=== PATIENT | male | born 1970 | race Caucasian/White ===

== ENCOUNTER 2018-08-31 10:42 | Inpatient (IN) ==
[2018-08-31] MEDS ORDERED: DESYREL PO PRN (12:12)
[2018-08-31] MEDS ORDERED: D5W 1,000 ML IV PRN (12:12)
[2018-08-31] MEDS ORDERED: ROBAXIN PO PRN (12:12)
[2018-08-31] MEDS ORDERED: MAALOX PLUS LIQUID PO PRN (12:12)
[2018-08-31] MEDS ORDERED: PHENOBARBITAL IV PRN (12:12)
[2018-08-31] MEDS ORDERED: MOTRIN PO PRN (12:12)
[2018-08-31] MEDS ORDERED: IMODIUM PO PRN (12:12)
[2018-08-31] MEDS ORDERED: SEROQUEL PO PRN (12:12)
[2018-08-31] MEDS ORDERED: SALINE LOCK IV FLUID XX ONE (12:12)
[2018-08-31] MEDS ORDERED: SENOKOT PO PRN (12:12)
[2018-08-31] MEDS ORDERED: ZOFRAN ODT PO PRN (12:12)
[2018-08-31] MEDS ORDERED: TYLENOL PO PRN (12:12)
[2018-08-31] MEDS ORDERED: BENTYL PO PRN (12:12)
[2018-08-31] MEDS ORDERED: ZOFRAN IM PRN (12:12)
[2018-08-31] MEDS ORDERED: ATARAX PO PRN (12:12)
[2018-08-31] MEDS ORDERED: DULCOLAX PR PRN (12:12)
[2018-08-31] MEDS ORDERED: NICODERM PATCH TD PRN (12:12)
[2018-08-31 13:16] LABS: UR AMPHETAMINES QUAL NONE DETECTED (NONE DETECT); UR BARBITUATES QUAL NONE DETECTED (NONE DETECT); UR BENZODIAZEPIN QUAL NONE DETECTED (NONE DETECT); UR CANNABINOIDS QUAL NONE DETECTED (NONE DETECT); UR COCAINE QUAL NONE DETECTED (NONE DETECT); UR METHADONE QUAL NONE DETECTED (NONE DETECT); UR METHAMPHETAMINE QUAL NONE DETECTED (NONE DETECT); UR OPIATES QUAL NONE DETECTED (NONE DETECT); UR OXYCODONE QUAL NONE DETECTED (NONE DETECT); UR PCP QUAL NONE DETECTED (NONE DETECT); UR PROPOXYPHENE QUAL NONE DETECTED (NONE DETECT); UR TCA QUAL NONE DETECTED (NONE DETECT)
[2018-08-31] MEDS ORDERED: M.V.I.-12 10 ML, FOLIC ACID 1 MG, MAGNESIUM SULFATE 1 GM, THIAMINE 100 MG in NS 1,000 ML IV ONE (14:00)
[2018-08-31] MEDS ORDERED: LIBRIUM PO SCH (14:00)
[2018-08-31] MEDS ORDERED: TUBERSOL ID ONE (14:00)
[2018-08-31 14:12] LABS: URINE SOURCE VOIDED
[2018-08-31 14:12] LABS: HEMATOCRIT 40.2 % (42.0-52.0); HEMOGLOBIN 14.1 g/dL (14.0-18.0); MCH 33.8 PG (27-31); MCHC 35.1 g/dL (33-37); MCV 96.4 FL (81-99); RBC 4.17 XMIL (4.7-6.1); WBC 8.16 X1000 (4.8-10.8)
[2018-08-31 14:16] LABS: BILIRUBIN URINE NEGATIVE (NEGATIVE); BLOOD URINE NEGATIVE (NEGATIVE); CLARITY CLEAR (CLEAR); COLOR YELLOW; GLUCOSE URINE NEGATIVE (NEGATIVE); KETONE URINE NEGATIVE (NEGATIVE); LEUKOCYTES URINE NEGATIVE (NEGATIVE); NITRITE URINE NEGATIVE (NEGATIVE); PH URINE 6.5; PROTEIN URINE NEGATIVE (NEGATIVE); UROBILINOGEN URINE NORMAL
[2018-08-31 14:28] LABS: AMYLASE 38 U/L (20-200); LIPASE 32 U/L (13-60)
[2018-08-31 14:30] LABS: AGAP 15; ALBUMIN 4.4 g/dL (3.5-5.0); ALKALINE PHOSPHATASE 58 U/L (32-122); BUN 4 mg/dL (8-22); CHLORIDE 98 mmol/L (98-107); COSMO 272; CREATININE 0.6 mg/dL (0.7-1.2); ESTIMATED GFR > 60; GLUCOSE 87 mg/dL (70-104); GOT 73 U/L (10-34); GPT 49 U/L (10-44); POTASSIUM 4.5 mmol/L (3.5-5.1); SODIUM 138 mmol/L (136-145); TCO2 25 mmol/L (25-35); TOTAL PROTEIN 7.4 g/dL (6.3-8.3)
[2018-08-31 14:31] LABS: INR 0.88; PROTIME 12.4 Seconds (11.0-16.0)
[2018-08-31] MEDS: LIBRIUM PO SCH (20:07)
[2018-09-01] MEDS: LIBRIUM PO SCH ×4 (03:05→20:34)
[2018-09-01] MEDS: PROTONIX PO SCH (06:03)
[2018-09-01] MEDS: THERA M PLUS PO SCH (10:00)
[2018-09-01] MEDS: FOLIC ACID PO SCH (10:00)
[2018-09-01] MEDS: VITAMIN B-1 PO SCH (10:00)
--- NOTE | 2018-09-01 18:32 | PROGRESS NOTE ---
DATE: 09/01/2018 SUBJECTIVE: The patient notes overall he is actually feeling good. He states his withdrawal symptoms have improved. He is having very little tremors. He is having no weakness, which is an improvement. He states that he did not sleep well, but notes that he was able to eat supper and is excited about eating breakfast this morning. OBJECTIVE: Vital signs reviewed and stable. He is awake, alert. He is in no current respiratory distress. HEENT: Normocephalic. Neck supple. CV: Regular rate. No murmurs. Chest clear, nonlabored. Abdomen is soft, nondistended, nontender. Extremities: Moves all extremities. ASSESSMENT: 1. Nausea and vomiting. 2. Abdominal pain. 3. Myalgias. 4. Paresthesias. 5. Paroxysmal sweating. 6. Opiate abuse withdrawal, admitted for stabilization. 7. Tremors. 8. Alcohol abuse withdrawal, and continued stabilization. PLAN: We will continue the patient in the hospital on high-dose Librium. Continue to follow, wean as tolerated. Further orders as needed. cc: Bakari Mccollum MD
[2018-09-02] MEDS: LIBRIUM PO SCH ×3 (01:26→16:11)
[2018-09-02] MEDS: PROTONIX PO SCH (06:34)
[2018-09-02] MEDS: THERA M PLUS PO SCH (08:03)
[2018-09-02] MEDS: FOLIC ACID PO SCH (08:04)
[2018-09-02] MEDS: VITAMIN B-1 PO SCH (08:04)
--- NOTE | 2018-09-02 10:10 | HISTORY AND PHYSICAL ---
CHIEF COMPLAINT: Nausea, vomiting, tremors. HISTORY OF PRESENT ILLNESS: Patient is a 48-year-old male who presented to [email or web address] program secondary to nausea, vomiting and tremors. The patient notes that he has been drinking alcohol heavily again. He had been very successful on Vivitrol until he had missed a shot. At that point, he had unfortunately attempted to take a drink, and from that point on has been drinking heavily up to 24 beers a day. SOCIAL HISTORY: Patient is . He is currently unemployed. Lives at home in [place]. PAST MEDICAL HISTORY: Significant only for prostate problems, chronic tobacco abuse, chronic alcoholism, chronic anxiety. Does have a history of blackouts secondary to drinking. FAMILY HISTORY: Noncontributory, although does have a family history of his grandfather committing suicide which has created stressor in his life. MEDICATIONS: None. ALLERGIES: None. REVIEW OF SYSTEMS: CIWA score is 11 secondary to nausea, vomiting, paroxysmal sweating, agitation, disorientation, headache. He is very fatigued; in fact, has to be helped to stand. Denies any headaches, blurry vision, change in his vision. Denies any focalized weakness, although he is generally weak. Denies any dysuria, frequency, urgency. Denies hesitancy, polyuria. Denies constipation, melena, hematochezia. The patient's acute withdrawal symptoms actually are mild currently, although interestingly he is already having withdrawal symptoms and drank 10 beers earlier this morning prior to leaving [place] to come to the hospital. PHYSICAL EXAMINATION: GENERAL: Vital signs reviewed and stable. Patient is awake, alert. He is in no current respiratory distress, but he is somewhat ill-appearing due to generalized weakness and acute alcohol withdrawal symptoms. HEENT: Normocephalic. NECK: Supple. CV: Regular rate. No murmurs. CHEST: Clear and nonlabored. ABDOMEN: Soft, nondistended. No masses. EXTREMITIES: Moves all extremities, although generalized weakness. He has very mild tremors. NEUROLOGIC: No focal neurological changes. SKIN: Warm, dry, no rashes. ASSESSMENT: 1. Nausea and vomiting. 2. Abdominal pain. 3. Tremors. 4. Generalized weakness. 5. History of blackouts due to alcohol ingestion. 6. Chronic alcoholism. PLAN: We will admit patient to [facility]. Begin counseling. Begin treatment with high-dose Librium and will follow. Discussed with patient the importance of continuing on his Vivitrol injections at home for a minimum of 6 months, preferably close to a year to allow him ample time to continue to wean off the alcohol. cc: Bakari Mccollum MD
--- NOTE | 2018-09-02 10:29 | PROGRESS NOTE ---
DATE: 09/02/2018 SUBJECTIVE: Patient notes overall he is feeling a lot better. His withdrawal symptoms have improved. Denies any chest pain, palpitations. Denies any fevers or chills. States his weakness has improved. States that his confusion has improved. PHYSICAL EXAMINATION: Vital Signs: Reviewed General: Patient is awake, alert. He is in no current respiratory distress. Very pleasant to talk with. HEENT: Normocephalic. Neck: Supple. CARDIOVASCULAR: Regular rate. No murmurs. Chest: Clear. Abdomen: Soft. Extremities: Moves all extremities. Neurologic: No changes. ASSESSMENT: 1. Nausea, vomiting. 2. Myalgias. 3. Paresthesias. 4. Tremors. 5. Alcohol abuse withdrawal and stabilization. 6. Chronic anxiety. PLAN: We will continue patient in the hospital. Continue to wean Librium. We will step down to 3 times a day today. If he tolerates hopefully can discharge home tomorrow. Hopefully, we can start him back on Vivitrol. If not, we will use naltrexone until Vivitrol can be ordered. cc: Bakari Mccollum MD
[2018-09-03] MEDS: LIBRIUM PO SCH ×2 (00:07→08:08)
[2018-09-03] MEDS: PROTONIX PO SCH (06:01)
[2018-09-03] MEDS: VITAMIN B-1 PO SCH (08:08)
[2018-09-03] MEDS: FOLIC ACID PO SCH (08:08)
[2018-09-03] MEDS: THERA M PLUS PO SCH (08:08)
[2018-09-03] MEDS ORDERED: VIVITROL IM ONE (10:45)
[2018-09-03 13:24] VITALS: BP 138/97
--- NOTE | 2018-09-04 16:06 | DISCHARGE SUMMARY ---
ADMISSION DATE: 08/31/2018 DISCHARGE DATE: 09/03/2018 DISCHARGE DIAGNOSES: 1. Nausea, vomiting. 2. Abdominal pain. 3. Myalgias. 4. Paresthesias. 5. Paroxysmal sweating. 6. Tremors. 7. Alcohol abuse withdrawal and stabilization. CONSULTATIONS: None. PROCEDURES: None. BRIEF HOSPITAL COURSE: The patient is a 48-year-old male who presented to [facility] program secondary to nausea, vomiting, abdominal pain, tremors and myalgias. He was treated in the usual fashion. Was given [*]IV banana bag. He was placed on high-dose Librium taper. Continue to wean as tolerated. Counseling was performed each day by myself. DISPOSITION: Thankfully on discharge, patient is awake, alert. He is in no distress. Overall, he is feeling much better. He is having no withdrawal symptoms currently. We will discharge him home on naltrexone. Discussed with him that he needs to consider taking medication assisted therapy for a minimum of 6 months. He needs outpatient life counseling as well as alcohol counseling. TIME SPENT: Greater than 30 minutes was spent in total care. cc: Bakari Mccollum MD
== END 2018-09-03 14:34 | disposition home or self-care (01) | DRG 897 ==
LOC: P.DIRADM 11:06 → P.MEDSURG 11:24
PROVIDERS: ADMIT Family Medicine; ATTEND Family Medicine
CPT/HCPCS: 80053; 80104; 80301; 80305; 80307; 80320; 82055; 82150; 83690; 85027; 85610; 86580; A9270; G0431; G0434; G0477; G0480; G6040; J2315; J3411; J3475; J7030